=== PATIENT | female | born 1980 | race African-American/Black ===

== ENCOUNTER 2024-11-12 07:27 | Emergency (ER) | payer SELFPAY ==
[2024-11-12] MEDS ORDERED: Metoprolol Tartrate 5 MG (5 mL) VIAL ONE (07:48)
[2024-11-12 07:59] LABS: Hematocrit 36.8 % (34.9-44.5); Hemoglobin 11.4 g/dL (12.0-15.5); Mean Corpuscular Hemoglobin 22.6 pg (27.0-33.0); Mean Corpuscular Volume 72.9 fL (81.6-98.3); Platelet Count 233 10x3/uL (150-450); Red Blood Cell (RBC) Count 5.05 10x6/uL (3.90-5.03); White Blood Cell (WBC) Count 5.89 10x3/uL (3.5-10.5)
[2024-11-12 08:00] LABS: #Basophils Less than 0.03 10x3/uL (0.0-0.2); #Eosinophils Less than 0.03 10x3/uL (0.0-0.5); #Monocytes 0.84 10x3/uL (0.0-1.1); #Neutrophils 2.10 10x3/uL (1.5-8.4); %Basophils 0.2 % (0.0-2.0); %Eosinophils 0.2 % (0.0-6.0); %Lymphocytes 49.7 % (18.0-47.0); %Monocytes 14.3 % (0.0-10.0); %Neutrophils 35.6 % (40.0-75.0)
[2024-11-12 08:23] LABS: ALT (SGPT) 11 U/L (Less than 34); AST (SGOT) 29 U/L (11-34); Albumin 3.7 g/dL (3.1-4.5); Alkaline Phosphatase 107 U/L (40-110); Anion Gap 16 mmol/L (10-20); BUN (Urea Nitrogen) 8 mg/dL (7.0-18.7); Bilirubin, Total 0.2 mg/dL (0.3-1.2); Calc. Creatinine Clearance 0 mL/min (70-130); Calcium 8.4 mg/dL (7.8-10.44); Carbon Dioxide 17 mmol/L (22-29); Chloride 110 mmol/L (98-107); Globulin 4.3 g/dL (2.4-3.5); Glucose 115 mg/dL (70-105); Magnesium 1.6 mg/dL (1.6-2.6); Potassium 4.0 mmol/L (3.5-5.1); Sodium 139 mmol/L (136-145)
[2024-11-12 08:30] LABS: Troponin I Less than 0.010 ng/mL (< 0.028)
[2024-11-12 08:42] LABS: Anisocytosis SLIGHT = 6-15 cells (100X) (0-5/hpf); Microcytosis SLIGHT = 6-15 cells (100X) (0-5/hpf)
[2024-11-12 08:43] LABS: Platelet Adequacy Comment Appears Adequate
[2024-11-12 09:01] LABS: Thyroid Stimulating Hormone Less than 0.0025 uIU/mL (0.35-4.94)
[2024-11-12 09:42] LABS: Free T4 (Free Thyroxine) 2.70 ng/dL (0.70-1.48)
== END 2024-11-12 09:25 | disposition home or self-care (01) ==
LOC: CSHERS 07:27
DX: R00.2 Palpitations (principal); E05.00 Thyrotoxicosis with diffuse goiter without thyrotoxic crisis or storm; Z55.6 Problems related to health literacy
CPT/HCPCS: 71045; 80053; 83735; 83880; 84439; 84443; 84484; 85025; 85379; 93005; 96374